=== PATIENT | male | born 1980 | race Caucasian/White ===

== ENCOUNTER 2018-10-20 10:46 | Emergency (ER) | payer OTHER ==
[2018-10-20] MEDS ORDERED: SODIUM CHLORIDE 0.9% 1,000 ML IV ONE (10:54)
[2018-10-20] MEDS ORDERED: ONDANSETRON 4 MG/2 ML VIAL IVP STA (10:54)
[2018-10-20] MEDS ORDERED: diphenhydrAMINE 50 MG/ML 1 ML VIAL IVP STA (10:54)
[2018-10-20] MEDS ORDERED: methylPREDNISolone SOD SUCCI 125 MG/2 ML VIAL IV STA (10:54)
[2018-10-20] MEDS ORDERED: IPRATROPIUM-ALBUTEROL 3 ML NEB INHALATION STA (10:57)
[2018-10-20 11:02] VITALS: RESP 20; TEMP 97.4
--- NOTE | 2018-10-20 12:50 | ED ---
General Adult HPI - General Chief complaint: Allergic Reaction Stated complaint: bee sting-known allergy Time Seen by Provider: 10/20/18 11:00 Source: patient, RN notes reviewed Mode of arrival: ambulatory - History of Present Illness Initial comments: This is a 38-year-old male who presents emergency Department after being stung by 7 beats. Patient states he immediately took epinephrine and Benadryl at home. Patient states he was short of breath but those symptoms are improving vastly. Patient also states he has hives all over his body but again they seem to be slowly improving. Patient denies any difficulty breathing at this time. Patient continues to have a rash is very itchy. Patient denies any palpitations chest pain. Patient denies any abdominal pain however he vomited quite a bit hard to arrival. - Related Data Home Medications Medication Instructions Recorded Confirmed Acamprosate Calcium [Campral] 333 mg PO TID 10/20/18 10/20/18 EPINEPHrine (Auto Inject) [Epipen] 0.3 mg IM ONCE PRN 10/20/18 10/20/18 Ibuprofen [Motrin Ib] 400 - 800 mg PO Q6H PRN 10/20/18 10/20/18 Metoprolol Succinate [Toprol Xl] 50 mg PO DAILY 10/20/18 10/20/18 Sertraline [Zoloft] 100 mg PO DAILY 10/20/18 10/20/18 Previous Rx's Medication Instructions Recorded EPINEPHrine (Auto Inject) [Epipen] 0.3 mg IM ONCE PRN #2 syringe 10/20/18 predniSONE 40 mg PO DAILY #8 tab 10/20/18 Allergies Allergy/AdvReac Type Severity Reaction Status Date / Time bee venom protein (honey bee) Allergy Swelling Verified 10/20/18 11:47 Penicillins Allergy Swelling Verified 10/20/18 11:47 Review of Systems ROS Statement: Those systems with pertinent positive or pertinent negative responses have been documented in the HPI. ROS Other: All systems not noted in ROS Statement are negative. Past Medical History Past Medical History: Hypertension History of Any Multi-Drug Resistant Organisms: None Reported Past Surgical History: No Surgical Hx Reported Past Psychological History: No Psychological Hx Reported Smoking Status: Current every day smoker Past Alcohol Use History: Occasional Past Drug Use History: None Reported General Exam - General Exam Comments Initial Comments: GENERAL: Patient is well-developed and well-nourished. Patient is nontoxic and well- hydrated and is in mild distress. ENT: Neck is soft and supple. No significant lymphadenopathy is noted. Oropharynx is clear. Moist mucous membranes. Neck has full range of motion without eliciting any pain. EYES: The sclera were anicteric and conjunctiva were pink and moist. Extraocular movements were intact and pupils were equal round and reactive to light. Eyelids were unremarkable. PULMONARY: Unlabored respirations. Good breath sounds bilaterally. No audible rales r honchi or wheezing was noted. CARDIOVASCULAR: There is a regular rate and rhythm without any murmurs gallops or rubs. Femoral pulses are equal bilaterally ABDOMEN: Soft and nontender with normal bowel sounds. No palpable organomegaly was noted. There is no palpable pulsatile mass. SKIN: Patient has hives on the his chest back and arms as well as abdomen. NEUROLOGIC: Patient is alert and oriented x3. Cranial nerves II through XII are grossly intact. Motor and sensory are also intact. Normal speech, volume and content. Symmetrical smile. MUSCULOSKELETAL: Normal extremities with adequate strength and full range of motion. LYMPHATICS: No significant lymphadenopathy is noted PSYCHIATRIC: Normal psychiatric evaluation. Course Vital Signs 10/20/18 10/20/18 10/20/18 10:58 11:23 11:31 Temperature 97.4 F L Pulse Rate 101 H 100 101 H Respiratory 20 Rate Blood Pressure 106/64 O2 Sat by Pulse 99 Oximetry Medical Decision Making - Medical Decision Making Patient received Pepcid and Solu-Medrol emergency department. I went back into reevaluate the patient after he bent over 2 hours and he had no symptoms at this time at all per patient no difficulty breathing or tightness in the throat. Patient had hives all over his body but they had completely subsided. Disposition Clinical Impression: Anaphylaxis Disposition: HOME SELF-CARE Condition: Good Instructions (If sedation given, give patient instructions): Anaphylaxis (ED) Prescriptions: EPINEPHrine (Auto Inject) [Epipen] 0.3 mg IM ONCE PRN #2 syringe PRN Reason: Difficulty breathing predniSONE 40 mg PO DAILY #8 tab Is patient prescribed a controlled substance at d/c from ED?: No Referrals: Qiana Marie DO [Primary Care Provider] - 1-2 days Time of Disposition: 13:32
[2018-10-20 13:50] VITALS: BP 145/69; PULSE 84
== END 2018-10-20 13:50 | disposition home or self-care (01) ==
LOC: EC 10:46
DX: T63.441A Toxic effect of venom of bees, accidental (unintentional), initial encounter (principal); T78.2XXA Anaphylactic shock, unspecified, initial encounter; I10 Essential (primary) hypertension; F17.200 Nicotine dependence, unspecified, uncomplicated; Z88.0 Allergy status to penicillin; Z79.899 Other long term (current) drug therapy
CPT/HCPCS: 94640; 99284; 96374; 96375 ×2; 96361 ×3; J1200; J2930; J2405

== ENCOUNTER 2019-10-06 01:17 | Emergency (ER) | payer OTHER ==
[2019-10-06 01:23] VITALS: BP 148/90; PULSE 114; RESP 20; TEMP 98.7
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
== END 2019-10-06 02:35 | disposition home or self-care (01) ==
LOC: EC 01:17
DX: S93.401A Sprain of unspecified ligament of right ankle, initial encounter (principal); S63.501A Unspecified sprain of right wrist, initial encounter; S00.01XA Abrasion of scalp, initial encounter; I10 Essential (primary) hypertension; Z79.899 Other long term (current) drug therapy; Z88.0 Allergy status to penicillin; Z91.030 Bee allergy status; V47.5XXA Car driver injured in collision with fixed or stationary object in traffic accident, initial encounter; W22.11XA Striking against or struck by driver side automobile airbag, initial encounter; Y92.410 Unspecified street and highway as the place of occurrence of the external cause
CPT/HCPCS: 70450; 72125; 99284

== ENCOUNTER → 2020-04-06 | Outpatient (CLI) | payer OTHER ==
--- NOTE | 2020-04-06 16:49 | CONS ---
CONSULTATION DATE OF SERVICE: 04/06/2020 This is a 39-year-old gentleman who has been evaluated in Sleep Center for evaluation and treatment of possible obstructive sleep apnea-hypopnea syndrome, some symptoms of restless legs and btx-in-bxntv movements. HISTORY OF PRESENT ILLNESS/SLEEP-WAKE EVALUATION: Patient's usual sleep schedule is from 8 p.m. to 3:45 a.m. on weekdays and from 9 p.m. to 6 or 7 a.m. on weekends. Sometimes he may have problems with falling asleep, has TV set in bedroom. He usually sleeps on the side position. He snores loudly with witnessed episodes of stopped breathing during sleep and also awakenings with choking and gasping for air during the night. He wakes up from sleep up to 4 times with up to 2 episodes of nocturia. In the morning the patient wakes up tired, has episodes of sleepiness during the day. [place] Sleepiness Scale is 7. No history of hypnagogic hallucinations, sleep paralysis or cataplexy. Positive history of possible periodic limb movements and leg movements at night. Sometimes episodes of prn-ds-brmwm movements. PAST MEDICAL HISTORY: Positive for arthritis. PAST SURGICAL HISTORY: None. MEDICATIONS: None. FAMILY HISTORY: Basically negative. SOCIAL HISTORY: Negative for smoking or using alcohol. REVIEW OF SYSTEMS: Snoring, awakenings from sleep, episodes of wwn-oi-tlwxt movements and movements during sleep. PHYSICAL EXAMINATION: GENERAL: A pleasant gentleman without distress. VITAL SIGNS: BP 152/91, HR 79, RR 15, height 6 feet 2 inches, weight 288.4 pounds, body mass index 36.9, temperature 98.0, oxygen saturation at room air 98%. HEENT: PERRLA, EOMI. Evaluation of oropharynx showed tongue protrudes midline. Low position of soft palate. Mallampati III to IV. NECK: Supple. No JVD. Thyroid is not palpable. Wide neck; 19 inches in circumference. LUNGS: Clear to percussion and to auscultation. Good air exchange. No wheezing or rhonchi. HEART: S1, S2 regular. No murmurs, gallops or rubs. ABDOMEN: Soft and nontender. Bowel sounds are present. No organomegaly appreciated. EXTREMITIES: No clubbing or cyanosis. TOOTH CUTTER SPUR: Awake, alert, and oriented X3. Cranial nerves 2 to 7 intact. There is no fasciculation or atrophy. noted. No focal deficits observed. IMPRESSION: 1. Loud snoring, witnessed episodes of stopped breathing during sleep, extremely low position of soft palate, wide neck at 19 inches in circumference; obstructive sleep apnea-hypopnea syndrome. 2. Restless leg symptoms. 3. History of movements during the night, possibly periodic limb movements. 4. Some episodes of wck-um-jypuu movements; possible REM sleep behavioral disorder. 5. Hypertension in the office. 6. History of arthritis. 7. Obesity. BMI 36.9. PLAN: 1. Polysomnography for evaluation of patient's breathing during sleep. 2. CPAP/BiPAP titration if sleep study confirms obstructive sleep apnea-hypopnea syndrome. 3. Preferable position during sleep on the side. 4. No driving if patient feels any sleepiness. 5. I will see patient for follow up visit to explain results of testing and following plan. 6. Precautions related to possible REM sleep behavioral disorder. Close doors, windows. No access to guns or fire at night. Thank you very much for referring this patient for consultation. Sincerely, Sameer Lomeli MD, PhD, FAASM Diplomat of [employer] [employer] [employer] [facility] [place] MMODL / JOSEN: [id number] /
== END | disposition home or self-care (01) ==
LOC: SLEEP 14:03
PROVIDERS: ATTEND Internal Medicine
DX: G47.33 Obstructive sleep apnea (adult) (pediatric) (principal); G25.81 Restless legs syndrome; G47.69 Other sleep related movement disorders; I10 Essential (primary) hypertension; E66.9 Obesity, unspecified; Z87.39 Personal history of other diseases of the musculoskeletal system and connective tissue; Z68.36 Body mass index [BMI] 36.0-36.9, adult
CPT/HCPCS: 99211

== ENCOUNTER → 2020-07-20 | Outpatient (CLI) | payer OTHER ==
--- NOTE | 2020-07-20 21:04 | SFUN ---
SLEEP CENTER FOLLOW UP NOTE DATE OF SERVICE: 07/20/2020 This 40-year-old gentleman has been followed in Sleep Center for treatment of obstructive sleep apnea-hypopnea syndrome. Recently the patient had a polysomnogram which documented obstructive sleep apnea- hypopnea syndrome and then CPAP titration, when his respiration was controlled with CPAP. I discussed the results of the sleep studies with the patient in detail. Subsequently he was started on treatment with CPAP and today is his first visit after he started to use CPAP equipment. Originally, according to the patient, he did have some problems with CPAP and mask, but now he is already used to it and sleeps better with it, feels better during the day. I checked his CPAP unit. CPAP pressure is 8 cm of water. Usage is 28/30 nights and 23/30 nights more than 4 hours, Leak is 32 L/minute. Apnea-hypopnea index 0.4, which is absolutely perfect. MEDICATIONS: Blood pressure medication. PHYSICAL EXAMINATION: GENERAL: A pleasant patient in no distress. VITAL SIGNS: BP 133/87, HR 96, RR 15, weight 277 pounds, temperature 97.6, oxygen saturation at room air 97%. HEENT: PERRLA, EOMI. Evaluation of oropharynx showed tongue protrudes midline. Low position of soft palate. Mallampati III to IV. NECK: Supple. No JVD. Thyroid is not palpable. LUNGS: Clear to percussion and to auscultation. Good air exchange. No wheezing or rhonchi. HEART: S1, S2 regular. No murmurs, gallops or rubs. ABDOMEN: Obese. EXTREMITIES: No clubbing or cyanosis. BRONC BUSTER: Awake, alert, and oriented X3. Cranial nerves 2 to 7 intact. There is no fasciculation or atrophy. noted. No focal deficits observed. IMPRESSION: 1. Obstructive sleep apnea-hypopnea syndrome. Patient demonstrated good compliance with treatment, benefitting from treatment. Normal respiration on CPAP. 2. Obesity. 3. No recent episodes of rzt-vs-kzhqy movements. 4. History of hypertension. PLAN: 1. Patient will continue to use PAP equipment every night for the whole night. 2. Sleep hygiene with regular time in bed for at least 7-1/2 to 8 hours. 3. Precautions related to driving. No driving if feeling sleepiness. 4. I will maintain all necessary prescription for PAP supplies including mask, tube, filters. 5. Watching weight. 6. Follow-up visit in 6 months or earlier if patient has any problems. Thank you very much for allowing me to participate in the management of your patient. Sincerely, Sameer Lomeli MD, PhD, FAASM Diplomat of [employer] [employer] [facility] [place] MMODL / SHRUTHI: [id number] /
== END ==
LOC: SLEEP 16:18
PROVIDERS: ATTEND Internal Medicine
DX: G47.33 Obstructive sleep apnea (adult) (pediatric) (principal); E66.9 Obesity, unspecified; I10 Essential (primary) hypertension; F17.200 Nicotine dependence, unspecified, uncomplicated; Z88.0 Allergy status to penicillin; Z91.030 Bee allergy status

== ENCOUNTER 2023-10-28 08:14 | Observation (INO) | payer BC, OTHER ==
--- NOTE | 2023-10-28 08:49 | ED ---
Alcohol HPI - General Chief Complaint: Alcohol Stated Complaint: ETOH Time Seen by Provider: 10/28/23 08:27 Source: patient, RN notes reviewed Mode of arrival: ambulatory Limitations: no limitations - History of Present Illness Initial Comments: 43-year-old male presents emerged from chief complaint of alcohol intoxication, alcohol abuse. Patient states he is trying to detox himself. Patient states he has severe withdrawal symptoms including shaking, nausea vomiting diarrhea. Patient states that he went to rehab 5 years ago he drinks at least 1/5 of alcohol daily. Patient has no physical complaints. He states he is prescribed daily medications for hypertension but does not take them currently. Patient has not discussed this with his PCP he has not attempted to go to rehab. Patient denies any fevers chills chest pain or any other complaints. - Related Data Home Medications Medication Instructions Recorded Confirmed Acamprosate Calcium [Campral] 333 mg PO TID 10/20/18 10/20/18 EPINEPHrine (Auto Inject) [Epipen] 0.3 mg IM ONCE PRN 10/20/18 10/20/18 Ibuprofen [Motrin Ib] 400 - 800 mg PO Q6H PRN 10/20/18 10/20/18 Metoprolol Succinate [Toprol Xl] 50 mg PO DAILY 10/20/18 10/20/18 Sertraline [Zoloft] 100 mg PO DAILY 10/20/18 10/20/18 Previous Rx's Medication Instructions Recorded EPINEPHrine (Auto Inject) [Epipen] 0.3 mg IM ONCE PRN #2 syringe 10/20/18 predniSONE [Deltasone] 40 mg PO DAILY #8 tab 10/20/18 Allergies Allergy/AdvReac Type Severity Reaction Status Date / Time bee venom protein (honey bee) Allergy Swelling Verified 10/28/23 08:25 Penicillins Allergy Swelling Verified 10/28/23 08:25 Review of Systems ROS Statement: Those systems with pertinent positive or pertinent negative responses have been documented in the HPI. ROS Other: All systems not noted in ROS Statement are negative. Past Medical History Past Medical History: Hypertension History of Any Multi-Drug Resistant Organisms: None Reported Past Surgical History: No Surgical Hx Reported Past Psychological History: No Psychological Hx Reported Smoking Status: Vaper Past Alcohol Use History: Abuse, Daily, Heavy Past Drug Use History: None Reported General Exam Limitations: no limitations General appearance: alert, in no apparent distress Head exam: Present: atraumatic, normocephalic, normal inspection Eye exam: Present: normal appearance, PERRL, EOMI. Absent: scleral icterus, conjunctival injection, periorbital swelling ENT exam: Present: normal exam, mucous membranes moist Neck exam: Present: normal inspection, full ROM. Absent: tenderness, meningismus, lymphadenopathy Respiratory exam: Present: normal lung sounds bilaterally. Absent: respiratory distress, wheezes, rales, rhonchi, stridor Cardiovascular Exam: Present: normal rhythm, tachycardia, normal heart sounds. Absent: systolic murmur, diastolic murmur, rubs, gallop, clicks GI/Abdominal exam: Present: soft, normal bowel sounds. Absent: distended, tenderness, guarding, rebound, rigid Course Vital Signs 10/28/23 10/28/23 10/28/23 08:22 08:32 10:40 Temperature 97.9 F 98.3 F 98.8 F Pulse Rate 113 H 98 86 Respiratory 18 16 17 Rate Blood Pressure 144/98 142/98 134/83 O2 Sat by Pulse 97 96 96 Oximetry Medical Decision Making - Medical Decision Making Was pt. sent in by a medical professional or institution (, PA, HOSPITAL NURSING ASSISTANT, urgent care, hospital, or care home...) When possible be specific @ -No Did you speak to anyone other than the patient for history (EMS, parent, family, police, friend...)? What history was obtained from this source @ -No Did you review nursing and triage notes (agree or disagree)? Why? @ -I reviewed and agree with nursing and triage notes Were old charts reviewed (outside hosp., previous admission, EMS record, old EKG, old radiological studies, urgent care reports/EKG's, care home records)? Report findings @ -No old charts were reviewed Differential Diagnosis (chest pain, altered mental status, abdominal pain women, abdominal pain men, vaginal bleeding, weakness, fever, dyspnea, syncope, headache, dizziness, GI bleed, back pain, seizure, CVA, palpatations, mental health, musculoskeletal)? @ -Alcohol intoxication, alcohol withdrawal EKG interpreted by me (3pts min.). @ -None X-rays interpreted by me (1pt min.). @ -None done CT interpreted by me (1pt min.). @ -None done U/S interpreted by me (1pt. min.). @ -None done What testing was considered but not performed or refused? (CT, X-rays, U/S, labs)? Why? @ -None What meds were considered but not given or refused? Why? @ -None Did you discuss the management of the patient with other professionals (professionals i.e. , PA, HOSPITAL NURSING ASSISTANT, lab, RT, psych nurse, social group worker, carding doubler, teacher, foreign service officer, case monitor)? Give summary @ -Dr. Spain for admission Was smoking cessation discussed for >3mins.? @ -No Was critical care preformed (if so, how long)? @ -No Were there social determinants of health that impacted care today? How? (Home lessness, low income, unemployed, alcoholism, drug addiction, transportation, low edu. Level, literacy, decrease access to med. care, nursing home, rehab)? @ -No Was there de-escalation of care discussed even if they declined (Discuss DNR or withdrawal of care, Hospice)? DNR status @ -No What co-morbidities impacted this encounter? (DM, HTN, Smoking, COPD, CAD, Cancer, CVA, ARF, Chemo, Hep., AIDS, mental health diagnosis, sleep apnea, morbid obesity)? @ -None Was patient admitted / discharged? Hospital course, mention meds given and route, prescriptions, significant lab abnormalities, going to OR and other pertinent info. @ -Admitted patient is found to be acutely intoxicated with alcohol level at 4 60. Patient is currently here by himself and will be admitted for alcohol desiccation, impending alcohol withdrawal Undiagnosed new problem with uncertain prognosis? @ -No Drug Therapy requiring intensive monitoring for toxicity (Heparin, Nitro, Insulin, Cardizem)? @ -No Were any procedures done? @ -No Diagnosis/symptom? @ -alcohol intoxication, Acute, or Chronic, or Acute on Chronic? @ -acute Uncomplicated (without systemic symptoms) or Complicated (systemic symptoms)? @ -uncomplicated Side effects of treatment? @ -No Exacerbation, Progression, or Severe Exacerbation? @ -No Poses a threat to life or bodily function? How? (Chest pain, [place], [place], pneumonia, PE, COPD, DKA, ARF, appy, cholecystitis, CVA, Diverticulitis, Homicidal, Suicidal, threat to staff... and all critical care pts) @ -No - Lab Data Result diagrams: 10/28/23 08:40 10/28/23 08:40 Lab Results 10/28/23 10/28/23 Range/Units 08:40 08:40 WBC 5.7 (3.8-10.6) k/uL RBC 4.78 (4.30-5.90) m/uL Hgb 15.7 (13.0-17.5) gm/dL Hct 45.1 (39.0-53.0) % MCV 94.3 (80.0-100.0) fL MCH 32.9 (25.0-35.0) pg MCHC 34.9 (31.0-37.0) g/dL RDW 13.5 (11.5-15.5) % Plt Count 91 L (150-450) k/uL MPV 7.8 Neutrophils % 65 % Lymphocytes % 22 % Monocytes % 8 % Eosinophils % 2 % Basophils % 1 % Neutrophils # 3.7 (1.3-7.7) k/uL Lymphocytes # 1.3 (1.0-4.8) k/uL Monocytes # 0.5 (0-1.0) k/uL Eosinophils # 0.1 (0-0.7) k/uL Basophils # 0.1 (0-0.2) k/uL Manual Slide Review Performed RBC Morphology Normal Sodium 139 (137-145) mmol/L Potassium 4.1 (3.5-5.1) mmol/L Chloride 103 (98-107) mmol/L Carbon Dioxide 26 (22-30) mmol/L Anion Gap 10 mmol/L BUN 5 L (9-20) mg/dL Creatinine 0.54 L (0.66-1.25) mg/dL Est GFR (CKD-EPI)AfAm >90 (>60 ml/min/1.73 sqM) Est GFR (CKD-EPI)NonAf >90 (>60 ml/min/1.73 sqM) Glucose 111 H (74-99) mg/dL Calcium 9.4 (8.4-10.2) mg/dL Magnesium 2.0 (1.6-2.3) mg/dL Total Bilirubin 1.2 (0.2-1.3) mg/dL AST 169 H (17-59) U/L ALT 102 H (4-49) U/L Alkaline Phosphatase 62 (38-126) U/L Total Protein 7.4 (6.3-8.2) g/dL Albumin 4.6 (3.5-5.0) g/dL Lipase 66 (23-300) U/L Serum Alcohol 460 H* mg/dL Disposition Clinical Impression: Alcoholic intoxication, Alcoholic hepatitis Disposition: ADMITTED IP TO THIS HOSP Condition: Fair Referrals: Qiana Marie DO [Primary Care Provider] - 1-2 days Time of Disposition: 10:55
[2023-10-28] MEDS: SODIUM CHLORIDE 0.9% 1,000 ML IV STA (09:12)
[2023-10-28 09:22] LABS: Basophils # (A) 0.1 k/uL (0-0.2); Basophils % (A) 1 %; Eosinophils # (A) 0.1 k/uL (0-0.7); Eosinophils % (A) 2 %; HCT 45.1 % (39.0-53.0); HGB 15.7 gm/dL (13.0-17.5); Lymphocytes # (A) 1.3 k/uL (1.0-4.8); Lymphocytes % (A) 22 %; MCH 32.9 pg (25.0-35.0); MCHC 34.9 g/dL (31.0-37.0); MCV 94.3 fL (80.0-100.0); Mean Platelet Volume 7.8; Monocytes # (A) 0.5 k/uL (0-1.0); Monocytes % (A) 8 %; Neutrophils # (A) 3.7 k/uL (1.3-7.7); Neutrophils % (A) 65 %; RBC 4.78 m/uL (4.30-5.90); RDW 13.5 % (11.5-15.5); WBC 5.7 k/uL (3.8-10.6)
[2023-10-28 09:31] LABS: ALT 102 U/L (4-49); AST 169 U/L (17-59); African American GFR (CKD) >90 (>60 ml/min/1.73 sqM); Albumin 4.6 g/dL (3.5-5.0); Alkaline Phosphatase 62 U/L (38-126); Anion Gap 10 mmol/L; Blood Urea Nitrogen 5 mg/dL (9-20); Calcium 9.4 mg/dL (8.4-10.2); Carbon Dioxide 26 mmol/L (22-30); Chloride 103 mmol/L (98-107); Glucose 111 mg/dL (74-99); Lipase 66 U/L (23-300); Non-African American GFR(CKD) >90 (>60 ml/min/1.73 sqM); Potassium 4.1 mmol/L (3.5-5.1); Sodium 139 mmol/L (137-145); Total Bilirubin 1.2 mg/dL (0.2-1.3); Total Protein 7.4 g/dL (6.3-8.2)
[2023-10-28 09:49] LABS: Alcohol 460 mg/dL
[2023-10-28 09:57] LABS: Platelet Count 91 k/uL (150-450); RBC Morphology Normal
[2023-10-28] MEDS ORDERED: LORazepam 0.5 MG TAB PO PRN (10:49)
[2023-10-28] MEDS ORDERED: LORazepam 2 MG/ML INJ IV PRN ×2 (10:49)
[2023-10-28] MEDS ORDERED: NALOXONE 0.4 MG/ML 1 ML VIAL IV PRN (10:55)
[2023-10-28] MEDS: SODIUM CHLORIDE 0.9% 1,000 ML IV SCH (13:42)
[2023-10-28] MEDS: LORazepam 2 MG/ML INJ IV PRN (18:01)
[2023-10-28] MEDS: ONDANSETRON 4 MG/2 ML VIAL IVP PRN (18:02)
[2023-10-29] MEDS: PANTOPRAZOLE 40 MG/10 ML VIAL IV SCH (07:56)
[2023-10-29] MEDS: THIAMINE 100 MG TAB PO SCH (07:56)
[2023-10-29 12:07] VITALS: BMI 33.3
[2023-10-29] MEDS: cloNIDine HCL 0.1 MG TAB PO SCH (13:31)
[2023-10-29] MEDS: LORazepam 1 MG TAB PO PRN (13:35)
--- NOTE | 2023-10-29 14:23 | P.HPIM ---
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 Reports he drinks 1/5 of vodka daily for the last 2 months ,but has been alcohol dependent for years, attempted rehab in the past, attempted Antabuse and multiple other medical issues. Reports his last drink was yesterday morning. Denies prior withdrawal seizures.States first time for inpatient admission for DTs. Serum alcohol 460, total bili 1.2, AST 169, ALT 102, lipase 66, renal function stable, electrolytes within normal limits. Afebrile, normal WBC. Hemoglobin 15.7, platelets 91. Hypertensive on admission with blood pressure 179/125, reports he has not been compliant taking his prescribed antihypertensives. Denies any chest pain, palpitations or shortness of breath. Denies fever or chills. Positive tremors. Review of Systems Constitutional: denied any fever. Cardio vascular: denied any chest pain, palpitations Gastrointestinal denied any nausea vomiting Pulmonary: Denied any shortness of breath cough Neurologic denied any new focal deficits ROS Statement: Those systems with pertinent positive or pertinent negative responses have been documented in the HPI. ROS Other: All systems not noted in ROS Statement are negative. Past Medical History Past Medical History: Hypertension Additional Past Medical History / Comment(s): ETOH 1/5 vodka a day History of Any Multi-Drug Resistant Organisms: None Reported Past Surgical History: No Surgical Hx Reported Past Anesthesia/Blood Transfusion Reactions: No Reported Reaction Past Psychological History: No Psychological Hx Reported Smoking Status: Vaper Past Alcohol Use History: Abuse, Daily, Heavy Past Drug Use History: None Reported Medications and Allergies Home Medications Medication Instructions Recorded Confirmed Type No Known Home Medications 10/28/23 10/28/23 History Allergies Allergy/AdvReac Type Severity Reaction Status Date / Time bee venom protein (honey bee) Allergy Swelling Verified 10/28/23 11:20 Penicillins Allergy Swelling Verified 10/28/23 11:20 Physical Exam Vitals: Vital Signs Temp Pulse Pulse Resp BP BP BP 10/29/23 08:00 80 20 10/29/23 07:00 98.2 F 80 20 146/92 10/29/23 02:09 98.3 F 79 18 141/87 10/28/23 23:04 99.0 F 108 H 18 179/125 10/28/23 22:54 92 18 157/112 10/28/23 21:28 90 16 151/95 10/28/23 17:07 120 H 18 132/84 10/28/23 13:48 95 18 134/99 Pulse Ox 10/29/23 08:00 10/29/23 07:00 98 10/29/23 02:09 95 10/28/23 23:04 98 10/28/23 22:54 98 10/28/23 21:28 97 10/28/23 17:07 95 10/28/23 13:48 95 Intake and Output 10/28/23 10/29/23 10/29/23 22:59 06:59 14:59 Intake Total 118 Balance 118 Intake: Oral 118 Other: Voiding Method Toilet # Voids 1 Weight 117.934 kg 117.934 kg PHYSICAL EXAM: VITAL SIGNS: [As above] GENERAL: Alert and oriented x 3, sitting up in bed, CIWA 4 HEENT: Conjunctivae normal. eyes normal. NECK: Supple, no JVD. No LNs CARDIOVASCULAR: S1, S2 regular.. No murmur RESPIRATION: Unlabored, equal air entry ,breath sounds diminished in the bases. No rhonchi or crackles. No bronchial breathing. ABDOMEN: Soft, nontender . No guarding. no masses palpable. No ascites, No hepatosplenomegaly.Bowel sounds heard. LEGS: No edema. no swelling PSYCHIATRY: mood and affect normal. NERVOUS SYSTEM: Cranial N 2-12 grossly normal. No focal deficits. Strength and sensation grossly intact. Skin: Warm and dry, no rash Results CBC & Chem 7: 10/28/23 08:40 10/28/23 08:40 Thrombosis Risk Factor Assmnt - Choose All That Apply Any of the Below Risk Factors Present?: Yes Each Factor Represents 1 point: Age 41-60 years Other Risk Factors: No Thrombosis Risk Factor Assessment Total Risk Factor Score: 1 Thrombosis Risk Factor Assessment Level: Low Risk Assessment and Plan Assessment: Alcohol intoxication, serum alcohol 460, impending DTs. Consumes 1/5 of vodka daily in a patient with history of alcohol abuse for years. Alcoholic hepatitis Hypertension Morbid obesity, BMI 33 Plan: Continue on current medication regimen ,monitoring and symptomatic treatment. IV fluid hydration and thiamine. WA protocol. Clonidine ordered. Case management to assist with providing rehab resources. Discussed alcohol dependence -agents that could be reviewed at follow-up visit such as Vivitrol injections, gabapentin. The impression and plan of care has been dictated as directed. : I performed a history and examination of this patient, discussed the same with the dictator. I agree with the dictator's note ,documented as a scribe. Any additional findings or plans will be noted.
[2023-10-30 09:16] VITALS: BP 137/93; PULSE 73; RESP 16; TEMP 97.9
--- NOTE | 2023-10-31 17:32 | P.DS ---
Providers Date of admission: 10/28/23 10:43 Expected date of discharge: 10/30/23 Attending physician: Emil Spain MD Primary care physician: Qiana Marie Hospital Course: Final Diagnosis: Alcohol intoxication, serum alcohol 460, impending DTs. Consumes 1/5 of vodka daily in a patient with history of alcohol abuse for years. 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 Reports he drinks 1/5 of vodka daily for the last 2 months ,but has been alcohol dependent for years, attempted rehab in the past, attempted Antabuse and multiple other medical issues. Reports his last drink was yesterday morning. Denies prior withdrawal seizures.States first time for inpatient admission for DTs. Serum alcohol 460, total bili 1.2, AST 169, ALT 102, lipase 66, renal function stable, electrolytes within normal limits. Afebrile, normal WBC. Hemoglobin 15.7, platelets 91. Hypertensive on admission with blood pressure 179/125, reports he has not been compliant taking his prescribed antihypertensives. Denies any chest pain, palpitations or shortness of breath. Denies fever or chills. Positive tremors. Continue on current medication regimen ,monitoring and symptomatic treatment. IV fluid hydration and thiamine. CIWA protocol. Clonidine ordered. Case management to assist with providing rehab resources. Discussed alcohol depe ndence -agents that could be reviewed at follow-up visit such as Vivitrol injections, gabapentin. Significant clinical improvement. DTs mild, CIWA score 1.Reports he slept well. Denies Chest pain, palpitations or shortness of breath.alcohol abstinence re- enforced. Will continue on clonidine at [place].Community resources provided. Patient had been advised to F/U With PCP in 1 week to discuss further alcohol dependence-agents.Patient will be discharged home today in a stable condition with guarded prognosis. The impression and plan of care has been dictated as directed. : I performed a history and examination of this patient, discussed the same with the dictator. I agree with the dictator's note ,documented as a scribe. Any additional findings or plans will be noted. Patient Condition at Discharge: Stable Plan - Discharge Summary New Discharge Prescriptions: New Thiamine [Vitamin B-1] 100 mg PO DAILY tab cloNIDine HCL [Catapres] 0.1 mg PO TID 21 Days #63 tab Discharge Medication List Thiamine [Vitamin B-1] 100 mg PO DAILY tab 10/30/23 [Rx] cloNIDine HCL [Catapres] 0.1 mg PO TID 21 Days #63 tab 10/30/23 [Rx] Follow up Appointment(s)/Referral(s): Emil Spain MD [STAFF PHYSICIAN] - 1 Week Patient Instructions/Handouts: Alcohol Intoxication (DC), Abuse of Alcohol (DC) Discharge/Stand Alone Forms: AA Meetings [facility], AA Meetings [facility], Who Do I Call?, Community Resources, Outpatient Counseling, In Substance Abuse Facilities Discharge Disposition: HOME SELF-CARE
== END 2023-10-30 11:29 | disposition home or self-care (01) ==
LOC: EC 08:14 → 6NMEDSUR 10:43
PROVIDERS: ADMIT Family Medicine; ATTEND Family Medicine
DX: F10.239 Alcohol dependence with withdrawal, unspecified (principal); F10.229 Alcohol dependence with intoxication, unspecified; K70.10 Alcoholic hepatitis without ascites; I10 Essential (primary) hypertension; T46.5X6A Underdosing of other antihypertensive drugs, initial encounter; Z91.128 Patient's intentional underdosing of medication regimen for other reason; Z91.148 Patient's other noncompliance with medication regimen for other reason; F17.290 Nicotine dependence, other tobacco product, uncomplicated; E66.01 Morbid (severe) obesity due to excess calories; Z68.33 Body mass index [BMI] 33.0-33.9, adult; Z79.899 Other long term (current) drug therapy; Z88.0 Allergy status to penicillin; Z91.030 Bee allergy status
CPT/HCPCS: 36415; 80053; 80320; 83690; 83735; 85025; 96361; 96374; 96375; 96376; 99284